=== PATIENT | male | born 1990 | race Caucasian/White ===

== ENCOUNTER 2019-09-13 15:50 | Observation (INO) | payer OTHER ==
[~2019-09-13] VITALS: Ht 188 cm; Wt 79.8 kg
[2019-09-13 15:50] VITALS: BP_SYST 137
[2019-09-13] MEDS ORDERED: LORazepam 2 MG/ML VIAL IVP ONE ×3 (16:00→18:15)
[2019-09-13] MEDS ORDERED: NACL 0.9% 2,000 ML IV ONE (16:30)
[2019-09-13 16:48] LABS: EOSINOPHILS % (AUTO) 0.1 % (0.0-4.0); MEAN CORPUSCULAR HEMOGLOBIN 33 pg (27-31); MEAN CORPUSCULAR HGB CONC 34 % (32-36); RED BLOOD CELL COUNT(AUTO) 4.08 MIL/uL (4.2-6.2)
[2019-09-13] MEDS ORDERED: PHEN100C4 PO (17:00)
[2019-09-13 17:04] LABS: BASOPHILS # (AUTO) 0.1 K/uL (0.0-0.2); BASOPHILS % (AUTO) 1.1 % (0.0-2.0); HEMATOCRIT 40.4 % (36-54); HEMOGLOBIN 13.6 g/dL (14.0-18.0); LYMPHOCYTES # (AUTO) 0.5 K/uL (1.0-5.5); LYMPHOCYTES % (AUTO) 5.9 % (20.5-51.5); MEAN CORPUSCULAR VOLUME 99 fL (79.0-98.0); MONOCYTES # (AUTO) 0.6 K/uL (0.0-1.0); MONOCYTES % (AUTO) 6.8 % (1.7-9.3); NEUTROPHILS # (AUTO) 7.2 K/uL (1.8-7.7); NEUTROPHILS % (AUTO) 86.1 % (40.0-70.0); PLATELET COUNT (AUTO) 199 K/uL (130-430); RED CELL DISTRIBUTION WIDTH 12.3 % (9.0-15.0); WHITE BLOOD COUNT (AUTO) 8.4 K/uL (4.8-10.8)
[2019-09-13 17:39] LABS: CALCIUM 8.9 mg/dL (8.4-11.0); CREATININE 0.85 mg/dL (0.55-1.30); POTASSIUM 3.7 mmol/L (3.5-5.1)
[2019-09-13 17:55] LABS: TOTAL BILIRUBIN 0.8 mg/dL (0.0-1.0)
[2019-09-13 17:56] LABS: ALBUMIN 3.7 g/dL (3.4-4.8); PHENYTOIN (DILANTIN) 2.3 ug/mL (10.0-20.0)
[2019-09-13] MEDS ORDERED: PHENYTOIN SODIUM INJ 1,000 MG in NS 100 ML IV ONE (18:15)
[2019-09-13] MEDS ORDERED: PHENYTOIN SODIUM 250 MG/5 ML INJ. VIAL IV ONE (18:55)
[2019-09-13 22:16] VITALS: BP_SYST 132
[2019-09-14] MEDS ORDERED: MORPHINE 2 MG/ML INJ. SYRINGE IVP PRN (00:30)
[2019-09-14] MEDS ORDERED: ONDANSETRON HCL 4 MG/2 ML VIAL IVP PRN (00:30)
[2019-09-14] MEDS ORDERED: LORazepam 2 MG/ML VIAL IVP PRN (00:30)
[2019-09-14] MEDS ORDERED: ALBUTEROL SULFATE 0.083% 2.5 MG/3 ML VIAL.NEB INH PRN (00:30)
[2019-09-14 00:44] VITALS: BP_SYST 137
[2019-09-14] MEDS ORDERED: LORazepam 2 MG/ML VIAL IM PRN (00:45)
[2019-09-14] MEDS ORDERED: FOLIC ACID 1 MG, THIAMINE HCL 100 MG, MAGNESIUM SULFATE 1 GM, MVI 10 ML in NACL 0.9% 1,... IV SCH (00:45)
[2019-09-14] MEDS: NACL 0.9% 1,000 ML IV SCH ×4 (02:36→21:38)
[2019-09-14 06:36] LABS: BASOPHILS # (AUTO) 0.2 K/uL (0.0-0.2); BASOPHILS % (AUTO) 2.9 % (0.0-2.0); EOSINOPHILS # (AUTO) 0.1 K/uL (0.0-0.4); HEMATOCRIT 36.9 % (36-54); HEMOGLOBIN 12.6 g/dL (14.0-18.0); LYMPHOCYTES # (AUTO) 0.9 K/uL (1.0-5.5); LYMPHOCYTES % (AUTO) 17.5 % (20.5-51.5); MEAN CORPUSCULAR HEMOGLOBIN 33 pg (27-31); MEAN CORPUSCULAR HGB CONC 34 % (32-36); MEAN CORPUSCULAR VOLUME 98 fL (79.0-98.0); MONOCYTES # (AUTO) 0.4 K/uL (0.0-1.0); MONOCYTES % (AUTO) 7.8 % (1.7-9.3); NEUTROPHILS # (AUTO) 3.8 K/uL (1.8-7.7); NEUTROPHILS % (AUTO) 69.8 % (40.0-70.0); PLATELET COUNT (AUTO) 167 K/uL (130-430); RED BLOOD CELL COUNT(AUTO) 3.77 MIL/uL (4.2-6.2); RED CELL DISTRIBUTION WIDTH 12.2 % (9.0-15.0); WHITE BLOOD COUNT (AUTO) 5.4 K/uL (4.8-10.8)
[2019-09-14 06:52] LABS: ALBUMIN 3.2 g/dL (3.4-4.8); CALCIUM 8.3 mg/dL (8.4-11.0); CREATININE 0.63 mg/dL (0.55-1.30); PHENYTOIN (DILANTIN) 11.6 ug/mL (10.0-20.0); POTASSIUM 3.2 mmol/L (3.5-5.1)
[2019-09-14 07:25] LABS: TOTAL BILIRUBIN 1.4 mg/dL (0.0-1.0)
[2019-09-14 08:00] VITALS: BP_SYST 130
[2019-09-14] MEDS: chlordiazePOXIDE HCL 25 MG CAPSULE PO SCH ×3 (08:18→21:37)
[2019-09-14] MEDS: PHENYTOIN 100 MG CAPSULE PO SCH ×2 (08:21→15:00)
[2019-09-14] MEDS ORDERED: THIAMINE HCL 100 MG, MAGNESIUM SULFATE 1 GM in NS 100 ML IV SCH (09:00)
[2019-09-14] MEDS ORDERED: FOLIC ACID 1 MG, MVI 10 ML in NACL 0.9% 1,000 ML IV SCH (09:00)
[2019-09-14] MEDS: THIAMINE HCL 100 MG, MAGNESIUM SULFATE 1 GM in NS 100 ML IV SCH (10:26)
[2019-09-14] MEDS: FOLIC ACID 1 MG, MVI 10 ML in NACL 0.9% 1,000 ML IV SCH (10:27)
[2019-09-14 16:00] VITALS: BP_SYST 134
[2019-09-14 19:50] VITALS: BP_SYST 149
[2019-09-14] MEDS: levETIRAcetam 500 MG TABLET PO SCH (21:37)
[2019-09-15] MEDS: NACL 0.9% 1,000 ML IV SCH (07:35)
[2019-09-15 08:00] VITALS: BP_SYST 131
[2019-09-15] MEDS ORDERED: NICOTINE 14 MG/24 HR PATCH.TD24 TD SCH (09:00)
[2019-09-15] MEDS ORDERED: LEVE500T53 PO (09:30)
[2019-09-15] MEDS: levETIRAcetam 500 MG TABLET PO SCH (09:46)
[2019-09-15] MEDS: chlordiazePOXIDE HCL 25 MG CAPSULE PO SCH (09:46)
[2019-09-15] MEDS: THIAMINE HCL 100 MG, MAGNESIUM SULFATE 1 GM in NS 100 ML IV SCH (09:47)
[2019-09-15] MEDS: FOLIC ACID 1 MG, MVI 10 ML in NACL 0.9% 1,000 ML IV SCH (09:47)
[2019-09-15] MEDS ORDERED: GADOBENATE DIMEGLUMINE IV ONE (11:15)
[2019-09-15 12:00] VITALS: BP_SYST 125
[2019-09-15 20:10] VITALS: BP_SYST 137
== END 2019-09-15 20:33 | disposition home or self-care (01) ==
LOC: SED 15:50 → STU 20:16
PROVIDERS: ADMIT Internal Medicine Hospice and Palliative Medicine; ATTEND Internal Medicine Hospice and Palliative Medicine
DX: G40.909 Epilepsy, unspecified, not intractable, without status epilepticus (principal); F10.129 Alcohol abuse with intoxication, unspecified; F17.200 Nicotine dependence, unspecified, uncomplicated; Z81.1 Family history of alcohol abuse and dependence; Z91.19 Patient's noncompliance with other medical treatment and regimen
CPT/HCPCS: 36415 ×2; 70553; 80053 ×2; 80185 ×2; 85025 ×2; 87081; 95816; 96365; 96366 ×2; 96367; 96368; 96375; 96376 ×2; 99285; G0378; J1165; J2060 ×2; J3411 ×2; J3475 ×2; J3490 ×2; J7030 ×2